=== PATIENT | female | born 1965 | race African-American/Black ===

== ENCOUNTER 2019-01-25 12:13 | Emergency (ER) ==
[2019-01-25 12:19] VITALS: BP 129/87; TEMP 97.5; BMI 52.2
[2019-01-25] MEDS ORDERED: NORCO 10-325 PO STA (12:33)
--- NOTE | 2019-01-25 13:23 | CT ---
EXAM: CT of the lumbar spine without contrast History: Lower back pain. Technique: Multiplanar CT images through the lumbar spine were obtained without the administration of IV contrast Findings: Lung bases are free of consolidation. No acute fracture or subluxation of the lumbar spine. Moderate to severe disc space narrowing at L5, S1 with endplate sclerosis, osteophyte formation and vacuum disc phenomenon. Moderate disc space na rrowing at L3-L4. T12-L1: No significant bony central canal stenosis or bony neural foraminal narrowing. L1-L2: No significant bony central canal stenosis or bony neural foraminal narrowing. L2-L3: No significant bony central canal stenosis. E E or bony neural foraminal narrowing. L3-L4: Disc bulge effacing anterior thecal sac with mild to moderate central canal stenosis. Severe left and moderate to severe right bony neural foraminal narrowing secondary to ligamentous and facet hypertrophy. L4-L5: Disc bulge effacing anterior thecal sac with mild to moderate central canal stenosis. Modera te to severe left greater than right bilateral bony neural foraminal narrowing secondary to ligamento us and facet hypertrophy. L5-S1: Right paracentral disc protrusion effacing anterior thecal sac with mild to moderate central c anal stenosis and effacement of the right lateral recess. There is severe right and moderate to piter re left bony neural foraminal narrowing secondary to ligamentous and facet hypertrophy. There is enc roachment upon the right exiting nerve root. Impression: 1. No acute osseous abnormality of the lumbar spine. 2. Degenerative changes with level by level analysis as detailed above. 3. There is encroachment upon the right exiting nerve root at L5-S1.
--- NOTE | 2019-01-25 13:52 | ED.PDOC ---
General ED Provider: Dr. AUNDREA HENSLEY Chief Complaint: Back Pain Stated Complaint: LOW BACK PAIN TRAVELING DOWN RIGHT POSTERIOR LEG . Time Seen by Physician: 12:30 (NO TRAUMA ) Mode of Arrival: Walk-In Information Source: Patient Exam Limitations: No limitations Nursing and Triage Documentation Reviewed and Agree: Yes Does patient meet sepsis criteria?: No If yes, has appropriate treatment been initiated?: No System Inflammatory Response Syndrome: Not Applicable Sepsis Protocol: For patient's 13 years and over: Temp is 96.8 and below OR 101 and greater Pulse >90 BPM Resp >20/minute Acutely Altered Mental Status Are patient's symptoms suggestive of a new infection, such as: -Pneumonia -Skin, Soft Tissue -Endocarditis -UTI -Bone, Joint Infection -Implantable Device -Acute Abdominal Infection -Wound Infection -Meningitis -Blood Stream Catheter Infection -Unknown Musculoskeletal Complaint Exam - Back Pain Complaint/Exam Mechanism of Injury: Reports: No known trauma Onset/Duration: TODAY NO TRAUMA NO URINARY SIGN OR SYMP. Symptoms Are: Still present Timing: Constant Episodes Lasting: Hours Initial Severity: Moderate Current Severity: Moderate Location: Reports: Discrete Character: Reports: Aching Aggravating: Reports: Movements, Lifting, Bending, Walking Alleviating: Reports: None Associated Signs and Symptoms: Denies: Swelling, Redness, Bruising, Fever, Weakness, Numbness, Tingling, Abdominal pain, Flank pain, Bladder incontinence, Bowel incontinence, Weight loss, Pain with weight bearing Related History: Reports: Similar episode TAD Risk Factors: Reports: None AAA Risk Factors: Reports: None Cauda Equina Risk Factors: Reports: None Epidural Abcess Risk Factors: Reports: None Focal Tenderness: No Paraspinal Muscle Tenderness: No Paraspinal Muscle Spasm: No Scoliosis: No Lordosis: No Kyphosis: No SLR Test: Right Negative, Left Negative Hip Motion Testing Pain: Right Negative, Left Negative Focal Weakness: Present: None Focal Sensory Loss: Present: None Gait: Present: Normal Differential Diagnoses: Arthritis, Fracture, Renal Colic, Strain, Sprain Review of Systems - Review Of Systems Constitutional: Reports: No symptoms Eyes: Reports: No symptoms Ears, Nose, Mouth, Throat: Reports: No symptoms Respiratory: Reports: No symptoms Cardiac: Reports: No symptoms GI: Reports: No symptoms : Reports: No symptoms Musculoskeletal: Reports: Back pain Skin: Reports: No symptoms Neurological: Reports: No symptoms Endocrine: Reports: No symptoms Hematologic/Lymphatic: Reports: No symptoms All Other Systems: Reviewed and Negative Past Medical History - Past Medical History Previously Healthy: Yes Endocrine: Reports: None Cardiovascular: Reports: None Respiratory: Reports: None Hematological: Reports: None Gastrointestinal: Reports: None Genitourinary: Reports: None Neuro/Psych: Reports: Anxiety, Depression Musculoskeletal: Reports: None Cancer: Reports: None Last Menstrual Period: N/A - Surgical History General Surgical History: Reports: None - Family History Family History: Reports: None - Social History Smoking Status: Never smoker Hx Substance Use: No Alcohol Screening: None Physical Exam - Physical Exam Appearance: Well-appearing, No pain distress, Well-nourished Eyes: NATE, EOMI, Conjunctiva clear ENT: Ears normal, Nose normal, Oropharynx normal Respiratory: Airway patent, Breath sounds clear, Breath sounds equal, Respirations nonlabored Cardiovascular: RRR, Pulses normal, No rub, No murmur GI/: Soft, Nontender, No masses, Bowel sounds normal, No Organomegaly Musculoskeletal: Normal strength, ROM intact, No edema, No calf tenderness Skin: Warm, Dry, Normal color Neurological: Sensation intact, Motor intact, Reflexes intact, Cranial nerves intact, Alert, Oriented Psychiatric: Affect appropriate, Mood appropriate Interpretation - Radiology Interpretation Radiology Interpretation By: Radiologist Radiology Results: No acute changes Critical Care Note - Critical Care Note Total Time (mins): 0 Course - Course Orders, Labs, Meds: Orders Category Date Time Status Hydrocodone Bit/Acetaminophen [[place] 10-325] MEDS 01/25/19 12:33 Stat 1 tab PO ONCE STA CT LUMBAR SPINE W/O CONTRAST Stat RADS 01/25/19 12:33 Ordered Medications Discontinued Medications Generic Name Dose Route Start Last Admin Trade Name Freq PRN Reason Stop Dose Admin Hydrocodone Bitart/Acetaminophen 1 tab 01/25/19 12:33 01/25/19 12:48 [place] 10-325 PO 01/25/19 12:34 1 tab ONCE STA Administration Vital Signs: Temp Pulse Resp BP Pulse Ox 01/25/19 12:15 97.5 F L 70 20 129/87 95 Departure - Departure Time of Disposition: 13:52 Disposition: HOME SELF-CARE Discharge Problem: Low back pain Qualifiers: Chronicity: acute Back pain laterality: right Sciatica presence: with sciatica Sciatica laterality: sciatica of right side Qualified Code(s): M54.41 - Lumbago with sciatica, right side Instructions: Back Pain (ED), Lower Back Exercises (ED), Arthralgia (ED), Chronic Back Pain (DC), Sciatica (ED), Lumbar Radiculopathy (ED) Condition: Good Pt referred to PMD for follow-up: Yes IPMP verified?: No Additional Instructions: Please call your Family Physician as soon as possible to schedule a follow-up appointment.YOU MUST SEE YOUR M.D. TO DISCUSS FOR AN M.R.I OF THE LOWER BACK Allergies/Adverse Reactions: Allergies amoxicillin [From Augmentin] Adverse Reaction (Verified 01/25/19 12:19) aspirin Adverse Reaction (Verified 01/25/19 12:19) clavulanic acid [From Augmentin] Adverse Reaction (Verified 01/25/19 12:19) lisinopril Adverse Reaction (Verified 01/25/19 12:19) Home Medications: Ambulatory Orders Chlorthalidone 25 mg PO DAILY 01/25/19 Meloxicam 7.5 mg PO DAILY 01/25/19 Pregabalin [Lyrica] 150 mg PO BID 01/25/19 Sertraline HCl 100 mg PO DAILY 01/25/19
== END 2019-01-25 14:27 | disposition home or self-care (01) ==
LOC: ED 12:13
DX: M54.41 Lumbago with sciatica, right side (principal)
CPT/HCPCS: 99283

== ENCOUNTER 2019-03-18 15:11 | Emergency (ER) ==
[2019-03-18 15:15] VITALS: TEMP 97.6; BMI 62.5
--- NOTE | 2019-03-18 15:34 | ED.PDOC ---
General ED Provider: Dr. MAURA LANGE Chief Complaint: Shoulder Pain/Injury Stated Complaint: Patient is a 53 year old mobidly obese female who has a history of joint pain on the lower back afew months ago. Comes to the ER with lower neck upper thorasic pain that radiates bilaterally to the arms with associated numbness and decreased power on hand sap pp consultant. Started 2 days ago. Denies any Trauma or heavy lifting or straining. States she woke up with it. States he forgot to take her blood pressure medication this morning. Time Seen by Physician: 15:20 Mode of Arrival: Walk-In Information Source: Patient Exam Limitations: No limitations Nursing and Triage Documentation Reviewed and Agree: Yes Does patient meet sepsis criteria?: No System Inflammatory Response Syndrome: Not Applicable Sepsis Protocol: For patient's 13 years and over: Temp is 96.8 and below OR 101 and greater Pulse >90 BPM Resp >20/minute Acutely Altered Mental Status Are patient's symptoms suggestive of a new infection, such as: -Pneumonia -Skin, Soft Tissue -Endocarditis -UTI -Bone, Joint Infection -Implantable Device -Acute Abdominal Infection -Wound Infection -Meningitis -Blood Stream Catheter Infection -Unknown Musculoskeletal Complaint Exam - Neck Pain Complaint/Exam Mechanism of Injury: Reports: No known trauma Onset/Duration: 2 days Symptoms Are: Still present Timing: Constant Initial Severity: Moderate Current Severity: Moderate Location: Reports: Discrete (upper back, low neck ) Character: Reports: Throbbing Aggravating: Reports: Movement Associated Signs and Symptoms: Reports: Paresthesia Related History: Denies: Similar episode, Occupational injury Meningitis Risk Factors: Reports: None Cervical Spine Injury Risk Factors: Reports: None Related Surgical History: Reports: None Carotid Bruit Present: No Pain on Passive Flexion: No Positive Kernig's Sign: No ROM Limited In: Absent: Flexion, Extension, Right, Left, Side bending, Rotation Tenderness: Present: Midline Radiates to: Present: Right arm, Left arm Focal Weakness: Present: None Focal Sensory Loss: Reports: None Nexus Low Risk Criteria: No Altered LOC, No focal neuro deficit Neck Picture: 1 - Area of pain and tenderness Differential Diagnoses: Cervical Fracture, Sprain, Strain Review of Systems - Review Of Systems Constitutional: Reports: No symptoms Eyes: Reports: No symptoms Ears, Nose, Mouth, Throat: Reports: No symptoms Respiratory: Reports: No symptoms Cardiac: Reports: No symptoms GI: Reports: No symptoms : Reports: No symptoms Musculoskeletal: Reports: Back pain Skin: Reports: No symptoms Neurological: Reports: No symptoms Endocrine: Reports: No symptoms Hematologic/Lymphatic: Reports: No symptoms All Other Systems: Reviewed and Negative Past Medical History - Past Medical History Previously Healthy: Yes Endocrine: Reports: None Cardiovascular: Reports: Hypertension Respiratory: Reports: None Hematological: Reports: None Gastrointestinal: Reports: None Genitourinary: Reports: None Neuro/Psych: Reports: Anxiety, Depression Musculoskeletal: Reports: Arthritis (osteoarthritis. ), Back Pain, Joint Pain ( Sciatica ) Cancer: Reports: None Last Menstrual Period: none Other Pertinent Past Medical History: Mobid obesity - Surgical History General Surgical History: Reports: None - Family History Family History: Reports: None - Social History Smoking Status: Never smoker Hx Substance Use: No Alcohol Screening: None Lives: With family Physical Exam - Physical Exam Appearance: Well-appearing, Obese Pain Distress: Moderate Neck: Supple Respiratory: Airway patent, Breath sounds clear, Breath sounds equal, Respirations nonlabored Cardiovascular: RRR GI/: Soft Musculoskeletal: ROM intact Neurological: Sensation intact, Motor intact (Except decreased hand sap pp consultant bilaterally ), Alert, Oriented Psychiatric: Anxious Interpretation - Radiology Interpretation Radiology Interpretation By: Radiologist Radiology Results: Positive (mild to moderate multilevel Cervical disc disease with up to mild narrowing of central canal, mild neural foraminal stenosis.) Exam Interpreted: CT Scan Re-Evaluation - Re-Evaluation Time of Re-Evaluation: 16:50 Status: Improved Vital Signs Stable: Yes (139/94) Critical Care Note - Critical Care Note Total Time (mins): 0 Course - Course Orders, Labs, Meds: Orders Category Date Time Status Dexamethasone 4 mg/ml Inj [Decadron 4 mg/ml Sdv] MEDS 03/18/19 16:26 Discontinued 8 mg IM ONCE STA Hydrochlorothiazide MEDS 03/18/19 15:38 Discontinued 25 mg PO ONCE STA CT CERVICAL SPINE W/O CONTRAST Stat RADS 03/18/19 15:[address] THORACIC SPINE W/O CONTRAST Stat RADS 03/18/19 15:30 Completed Medications Discontinued Medications Generic Name Dose Route Start Last Admin Trade Name Freq PRN Reason Stop Dose Admin Dexamethasone Sodium Phosphate 8 mg 03/18/19 16:26 03/18/19 16:39 Decadron 4 Mg/Ml Sdv IM 03/18/19 16:27 8 mg ONCE STA Administration Hydrochlorothiazide 25 mg 03/18/19 15:38 03/18/19 16:11 Hydrochlorothiazide PO 03/18/19 15:39 25 mg ONCE STA Administration Vital Signs: Temp Pulse Resp BP Pulse Ox 03/18/19 16:15 135/94 H 03/18/19 16:11 137/87 03/18/19 15:11 97.6 F 78 20 147/111 H 95 Departure - Departure Time of Disposition: 16:38 Disposition: HOME SELF-CARE Discharge Problem: Radiculopathy affecting upper extremity, Cervical disc disease, Uncontrolled hypertension Instructions: Cervical Radiculopathy (ED), Acute Neck Pain (ED) Condition: Fair Pt referred to PMD for follow-up: Yes IPMP verified?: No Additional Instructions: Take medications as prescribed Follow up with PCP in 3 days Take your prescribed Meloxicam today . Prescriptions: Hydrocodone Bit/Acetaminophen [[place] 5-325] 1 each PO Q6HR PRN #15 tablet PRN Reason: severe pain Prednisone 20 mg PO DAILYWM #5 tablet Allergies/Adverse Reactions: Allergies amoxicillin [From Augmentin] Adverse Reaction (Verified 03/18/19 15:15) aspirin Adverse Reaction (Verified 03/18/19 15:15) clavulanic acid [From Augmentin] Adverse Reaction (Verified 03/18/19 15:15) lisinopril Adverse Reaction (Verified 03/18/19 15:15) Home Medications: Ambulatory Orders Chlorthalidone 25 mg PO DAILY 01/25/19 Meloxicam 7.5 mg PO DAILY 01/25/19 Pregabalin [Lyrica] 150 mg PO BID 01/25/19 Sertraline HCl 100 mg PO DAILY 01/25/19 Hydrocodone Bit/Acetaminophen [[place] 5-325] 1 each PO Q6HR PRN #15 tablet Prednisone 20 mg PO DAILYWM #5 tablet 03/18/19 Disposition Discussed With: Patient
[2019-03-18] MEDS ORDERED: HYDROCHLOROTHIAZIDE PO STA (15:38)
[2019-03-18] MEDS ORDERED: DECADRON 4 MG/ML SDV IM STA (16:26)
--- NOTE | 2019-03-18 16:32 | CT ---
EXAM: CT scan of the thoracic spine without contrast HISTORY: Neck, upper back pain TECHNIQUE: Helical imaging of the thoracic spine was performed without contrast. Sagittal and coron al reconstructions and axial images were provided for interpretation. FINDINGS: There is no evidence of compression fracture. The paraspinal soft tissues are normal. Th e spinous processes are intact. There is a normal alignment of the facet joints. IMPRESSION: No evidence of acute fracture seen within the thoracic spine.
--- NOTE | 2019-03-18 16:34 | CT ---
EXAM: CT cervical spine without contrast HISTORY: Mid lower back pain with radiculopathy TECHNIQUE: Multi-slice transaxial helical with coronal and sagittal reformatted views. COMPARISON: None FINDINGS: Cervical spine straightening is seen. There is mild to moderate multilevel disc space narrowing with small endplate osteophytes. No evidence of listhesis is seen. No evidence of listhesis is seen. In complete fusion of the posterior arch of C1 is seen, a normal variant. No evidence of displaced cerv ical spine fracture is seen. The visualized mastoid air cells appear well aerated. Lung apices appear clear. Segmental analysis: C2-C3: Small central disc protrusion is seen which results in mild narrowing of the central canal. T he bilateral neural foramina appear patent. C3-C4: Minimal narrowing of the central canal is seen secondary to transverse spondylotic ridge. No significant neural foraminal stenosis is seen. C4-C5: There is mild narrowing of the central canal secondary transverse spondylotic ridge. There is minimal narrowing of the bilateral neural foramina. C5-C6: There is mild narrowing of the central canal secondary transverse splenic ridge. There is mil d narrowing of the left neural foramen. The right neural foramen appears patent. C6-C7: There is mild narrowing of the central canal secondary to posterior disc osteophyte complex. The bile neural foramina appear patent. C7-T1: Central canal is partially obscured related to beam-hardening artifact. The bony neural hilton blanco appear patent. IMPRESSION: 1. No acute osseous abnormality. 2. Cervical spine straightening. 3. Mild to moderate multilevel cervical disc disease with up to mild narrowing of central canal. 4. Multilevel up to mild neural foraminal stenosis.
[2019-03-18 16:39] VITALS: BP 135/94
== END 2019-03-18 16:59 | disposition home or self-care (01) ==
LOC: ED 15:11
DX: M50.10 Cervical disc disorder with radiculopathy, unspecified cervical region (principal); I10 Essential (primary) hypertension
CPT/HCPCS: 96372; 99282